=== PATIENT | female | born 1970 | race American Indian/Alaskan Native ===

== ENCOUNTER 2018-01-31 22:01 | Emergency (ER) | payer OTHER ==
[2018-01-31 22:05] VITALS: BMI 30.7
[2018-01-31 22:13] VITALS: RESP 18; TEMP 98.4
[2018-01-31 22:26] LABS: BASO # 0.02 K/mm3 (0.0-2.0); BASO % 0.2 % (0.0-3.0); EOS # 0.3 (0.0-0.7); EOS % 3.1 % (1.5-5.0); GRAN # 5.7 (1.4-6.5); GRAN % 57.2 % (50.0-68.0); HEMOGLOBIN 15.2 g/dL (12.0-16.0); LYMPH # 3.4 (1.2-3.4); LYMPH % 33.6 % (22.0-35.0); MEAN CELL VOLUME 83.9 fl (80.0-105.0); MEAN CORPUSCULAR HEMOGLOBIN 29.5 pg (25.0-35.0); MEAN CORPUSCULAR HGB CONC 35.1 g/dl (31.0-37.0); MEAN PLATELET VOLUME 11.2 fl (7.0-11.0); MONO # 0.6 (0.1-0.6); MONO % 5.9 % (1.0-6.0); RBC 5.16 10^6/uL (3.5-6.1); RED CELL DISTRIBUTION WIDTH 12.4 % (11.5-14.5)
[2018-01-31 22:37] LABS: ALB/GLOB RATIO 1.3 (1.1-1.8); ALBUMIN 4.4 g/dL (3.0-4.8); ALT/SGPT 43 U/L (7-56); AST/SGOT 29 U/L (14-36); BLOOD UREA NITROGEN 13 mg/dL (7-21); GFR AFRICAN-AMERICAN > 60; GFR NON-AFRICAN AMERICAN > 60
--- NOTE | 2018-01-31 22:46 | ED PDOC ---
Arrival/HPI - General Historian: Patient - History of Present Illness Time/Duration: 24 hours Symptom Onset: Gradual Symptom Course: Worsening Quality: Pressure Severity Level: 8, Moderate <Yojana Pollack - Last Filed: 02/01/18 02:36> <Darrel Pastrana DO - Last Filed: 02/01/18 02:55> - General Chief Complaint: Chest Pain Time Seen by Provider: 01/31/18 22:07 - History of Present Illness Narrative History of Present Illness (Text): 01/31/18 22:42 Patient is a 47 year old female with no significant past medical history who presents to the ED for chest tightness. Patient states that the chest tightness started while at work. Located in the mid chest region. Constant in nature and has progressively gotten worse throughout the day. States that this has never happened to her before. Rates the pain a 7-8/10 currently and is non-radiating. Denies any alleviating or exacerbating factors. Chest tightness is associated with feeling of being clammy. Patient also reports having a frontal headache. Rates the headache a 10/10. Denies dizziness, palpitations, sob, nausea/vomiting , fevers, abdominal pain. Per review of patient chart, she had a normal stress test in 2016. (Yojana Pollack) Past Medical History - Provider Review Nursing Documentation Reviewed: Yes - Past History Past History: No Previous - Infectious Disease Hx of Infectious Diseases: None - Tetanus Immunization Tetanus Immunization: Unknown - Past Medical History Past Medical History: No Previous - Cardiac Hx Cardiac Disorders: No - Pulmonary Hx Respiratory Disorders: Yes - Neurological Hx Neurological Disorder: No - HEENT Hx HEENT Disorder: No - Renal Hx Renal Disorder: No - Endocrine/Metabolic Hx Endocrine Disorders: No - Hematological/Oncological Hx Blood Disorders: No Hx Anemia: Yes Hx Blood Transfusions: Yes - Integumentary Hx Dermatological Disorder: No - Musculoskeletal/Rheumatological Hx Musculoskeletal Disorders: No Hx Falls: No - Gastrointestinal Hx Gastrointestinal Disorders: No - Genitourinary/Gynecological Hx Genitourinary Disorders: Yes Other/Comment: Fibroids - Psychiatric Hx Psychophysiologic Disorder: No Hx Substance Use: No - Surgical History Hx Hysterectomy: Yes (June 2015) Other/Comment: uterine bx - Anesthesia Hx Anesthesia: Yes Hx Anesthesia Reactions: No Hx Malignant Hyperthermia: No <Yojana Pollack - Last Filed: 02/01/18 02:36> Family/Social History - Physician Review Nursing Documentation Reviewed: Yes Family/Social History: Hypertension Smoking Status: Never Smoked Hx Alcohol Use: Yes (socially) Frequency of alcohol use: Socially Hx Substance Use: No Hx Substance Use Treatment: No <Yojana Pollack - Last Filed: 02/01/18 02:36> Allergies/Home Meds <Yojana Pollack - Last Filed: 02/01/18 02:36> <Darrel Pastrana DO - Last Filed: 02/01/18 02:55> Allergies/Adverse Reactions: Allergies No Known Allergies Allergy (Verified 06/10/15 18:41) Review of Systems - Physician Review All systems were reviewed & negative as marked: Yes - Review of Systems Constitutional: Normal. absent: Fatigue, Fevers Eyes: Normal. absent: Vision Changes ENT: Normal. absent: Hearing Changes Respiratory: Normal. absent: SOB, Cough, Wheezing Cardiovascular: Normal, Chest Pain. absent: Palpitations, Edema, Calf Pain Gastrointestinal: Normal. absent: Abdominal Pain, Constipation, Nausea, Vomiting, Appetite Changes Genitourinary Female: Normal Skin: absent: Normal Neurological: Headache. absent: Normal, Dizziness <Yojana Pollack - Last Filed: 02/01/18 02:36> Physical Exam Vital Signs Reviewed: Yes Temperature: Afebrile Blood Pressure: Hypertensive Pulse: Regular Respiratory Rate: Normal Appearance: Positive for: Well-Appearing, Comfortable Pain Distress: Moderate Mental Status: Positive for: Alert and Oriented X 3 - Systems Exam Head: Present: Atraumatic, Normocephalic Pupils: Present: PERRL Extroacular Muscles: Present: EOMI Conjunctiva: Present: Normal Mouth: Present: Moist Mucous Membranes Neck: Present: Normal Range of Motion Respiratory/Chest: Present: Clear to Auscultation, Good Air Exchange. No: Respiratory Distress, Accessory Muscle Use Cardiovascular: Present: Regular Rate and Rhythm, Normal S1, S2, Other (Chest pain non-reproducible ). No: Murmurs Abdomen: No: Tenderness, Normal Bowel Sounds Upper Extremity: Present: Normal Inspection, NORMAL PULSES. No: Cyanosis, Edema Lower Extremity: Present: Normal Inspection, NORMAL PULSES. No: Edema, CALF TENDERNESS Neurological: Present: CN II-XII Intact Skin: Present: Warm, Dry, Normal Color Psychiatric: Present: Alert, Oriented x 3 <Yojana Pollack - Last Filed: 02/01/18 02:36> Vital Signs Temp Pulse Resp BP Pulse Ox 02/01/18 00:30 65 18 138/82 100 01/31/18 22:01 98.4 F 66 18 146/94 H 98 Medical Decision Making Re-evaluation Time: 23:42 Reassessment Condition: Improved - Lab Interpretations I have reviewed the lab results: Yes - RAD Interpretation Tour Production Supervisor: ED Physician - EKG Interpretation Interpreted by ED Physician: Yes Type: 12 lead EKG <Yojana Pollack - Last Filed: 02/01/18 02:36> <Darrel Pastrana DO - Last Filed: 02/01/18 02:55> ED Course and Treatment: 01/31/18 22:40 Patient is a 47 year old female with no significant past medical history who presented with chest tightness and frontal headache. Labs EKG CXR Toradol 30mg IVP 01/31/18 23:41 Patient re-evaluated. States that she feels better. Labs and imaging reviewed. Will discharge home with instructions to follow up with PMD Dr Kate. (Yojana Pollack) Patient Seen With Resident: In agreement with resident note which contains more details about the patient. Patient was seen and evaluated with resident. Came up with plan and treatment together. 47 year old female presents complaining of worsening chest tightness that began at work associated with headache. Plan: -- EKG -- Labs -- Chest X-ray -- IV Fluids, Toradol (Darrel Pastrana DO) - Lab Interpretations Lab Results: 01/31/18 22:15 01/31/18 22:15 Lab Results 01/31/18 22:15: Sodium 141, Potassium 3.9, Chloride 106, Carbon Dioxide 25, Anion Gap 13, BUN 13, Creatinine 0.5 L, Est GFR ( Amer) > 60, Est GFR ( Non-Af Amer) > 60, Random Glucose 98, Calcium 9.0, Magnesium 2.1, Total Bilirubin 0.6, AST 29, ALT 43, Alkaline Phosphatase 70, Lactate Dehydrogenase 419, Total Creatine Kinase 153, Troponin I < 0.01, Total Protein 7.9, Albumin 4.4, Globulin 3.4, Albumin/Globulin Ratio 1.3 01/31/18 22:15: WBC 10.0, RBC 5.16, Hgb 15.2, Hct 43.3, MCV 83.9, MCH 29.5, MCHC 35.1, RDW 12.4, Plt Count 238, MPV 11.2 H, Gran % 57.2, Lymph % (Auto) 33.6 , [place] % (Auto) 5.9, Eos % (Auto) 3.1, Baso % (Auto) 0.2, Gran # 5.70, Lymph # ( Auto) 3.4, [place] # (Auto) 0.6, Eos # (Auto) 0.3, Baso # (Auto) 0.02 - RAD Interpretation Narrative RAD Interpretations (Text): 01/31/18 23:24 CXR: No infiltrates or consolidations, no cardiomegaly (Yojana Pollack) Radiology Orders: 01/31/18 22:08 CHEST PORTABLE [RAD] Stat - EKG Interpretation EKG Interpretation (Text): 01/31/18 23:22 NSR 68 bpm, normal axis, TX interval wnl, no ST-T wave changes (Yojana Pollack) - Medication Orders Current Medication Orders: Discontinued Medications Sodium Chloride (Sodium Chloride 0.9%) 1,000 mls @ 999 mls/hr IV .Q1H1M STA Stop: 02/01/18 00:08 Last Admin: 01/31/18 23:20 Dose: 999 mls/hr eMAR Start Stop Document 01/31/18 23:20 AD (Rec: 01/31/18 23:35 AD [facility] [id number] Intravenous Solution Start Date 01/31/18 Start Time 23:20 Ketorolac Tromethamine (Toradol) 30 mg IVP STAT STA Stop: 01/31/18 22:42 Last Admin: 01/31/18 23:00 Dose: 30 mg MAR Pain Assessment Document 01/31/18 23:00 AD (Rec: 01/31/18 23:35 AD [facility] [id number] Pain Reassessment Is this a pain reassessment? No IVP Administration Document 01/31/18 23:00 AD (Rec: 01/31/18 23:35 AD [facility] [id number] Charges for Administration # of IVP Administrations 1 <Yojana Pollack - Last Filed: 02/01/18 02:36> - PA / REFRIGERATION LEAD / Resident Statement / has reviewed & agrees with the documentation as recorded. MD/ has examined the patient and agrees with the treatment plan. - Scribe Statement The provider has reviewed the documentation as recorded by the Scribe <Darrel Pastrana DO - Last Filed: 02/01/18 02:55> - Scribe Statement Trent Stubbs Provider Scribe Attestation: All medical record entries made by the Scribe were at my direction and personally dictated by me. I have reviewed the chart and agree that the record accurately reflects my personal performance of the history, physical exam, medical decision making, and the department course for this patient. I have also personally directed, reviewed, and agree with the discharge instructions and disposition. (Darrel Pastrana DO) Disposition/Present on Arrival - Present on Arrival Any Indicators Present on Arrival: No History of DVT/PE: No History of Uncontrolled Diabetes: No Urinary Catheter: No History of Decub. Ulcer: No History Surgical Site Infection Following: None - Disposition Have Diagnosis and Disposition been Completed?: Yes Disposition Time: 23:43 Patient Plan: Discharge <Yojana Pollack - Last Filed: 02/01/18 02:36> - Disposition Disposition Time: 22:40 <Darrel Pastrana DO - Last Filed: 02/01/18 02:55> - Disposition Diagnosis: Musculoskeletal pain Disposition: HOME/ ROUTINE Condition: GOOD Discharge Instructions (ExitCare): Muscle and Bone Pain (DC) Additional Instructions: CORDELIA ALEMAN, thank you for letting us take care of you today. The emergency medical care you received today was directed at your acute symptoms. If you were prescribed any medication, please fill it and take as directed. It may take several days for your symptoms to resolve. Return to the Emergency Department if your symptoms worsen, do not improve, or if you have any other problems. Please contact your doctor or call one of the physicians/clinics you have been referred to that are listed on the Patient Visit Information form that is included in your discharge packet. Bring any paperwork you were given at discharge with you along with any medications you are taking to your follow up visit. Our treatment cannot replace ongoing medical care by a primary care provider outside of the emergency department. Thank you for allowing the [facility] hospital team to be part of your care today. Follow up with your primary care doctor in 2-3 days for re-evaluation and and further management. Prescriptions: Ibuprofen [Motrin] 600 mg PO Q6 PRN #20 tab PRN Reason: Pain, Moderate (4-7) Referrals: Gerson Diaz Reranjan, [Family Provider] - Follow up with primary Forms: [employer] (Fijian)
[2018-01-31 22:49] LABS: TROPONIN I < 0.01 ng/mL
[2018-01-31] MEDS ORDERED: Sodium Chloride 0.9% 1,000 ML IV STA (23:08)
[2018-02-01 00:32] VITALS: BP 138/82; PULSE 65; O2SAT 100
--- NOTE | 2018-02-01 09:01 | RAD ---
Date of service: 01/31/2018 HISTORY: chest pain COMPARISON: No prior. FINDINGS: LUNGS: No active pulmonary disease. PLEURA: No significant pleural effusion identified, no pneumothorax apparent. CARDIOVASCULAR: Normal. OSSEOUS STRUCTURES: No significant abnormalities. VISUALIZED UPPER ABDOMEN: Normal. OTHER FINDINGS: None. IMPRESSION: No active disease.
--- NOTE | 2018-02-01 17:38 | CARD ---
APPROVED REPORT Date of service: 01/31/2018 EKG Measurement Heart [id number] <Conclusion> Poor data quality, interpretation may be adversely affected Normal sinus rhythm with sinus arrhythmia Normal ECG
== END 2018-02-01 00:30 | disposition home or self-care (01) ==
LOC: ED 22:01
DX: M79.1 Myalgia (principal); Z82.49 Family history of ischemic heart disease and other diseases of the circulatory system
CPT/HCPCS: 71045; 80053; 82550; 83615; 83735; 84484; 85025; 93005; 96374; 99283; J1885; J7030